=== PATIENT | female | born 1980 ===

== ENCOUNTER 2024-03-25 09:15 | Emergency (ER) | payer MEDICAID, OTHER ==
[~2024-03-25] VITALS: Ht 157.5 cm; Wt 55.8 kg
--- NOTE | 2024-03-25 09:29 | ED.PDOC ---
History of Present Illness HPI Comments flu symptoms for 3 days Comments cough, congestion, body aches for 3 days. no sob. 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 History Family History Family History: Reviewed,noncontributory to illness, No family hx of Cancer, No family hx of DM, No family hx of Heart herman, No family hx of HTN, No family hx ofKidney herman, No family hx of Liver herman, No family hx of Lung herman, No family hx of Stroke Social History Smoker: Quit Greater Than 1 Year Alcohol: Denies ETOH Use Drugs: Denies Drug Use Constitutional: reports: malaise; denies: chills, diaphoresis, fatigue, fever, sweats, weakness, others EENTM: reports: nasal discharge, nose congestion; denies: blurred vision, double vision, ear bleeding, ear discharge, ear drainage, ear pain, ear ringing, eye pain, eye redness, hearing loss, mouth pain, mouth swelling, nose bleeding, nose pain, photophobia, tearing, throat pain, throat swelling, voice changes, others Respiratory: reports: cough; denies: hemoptysis, orthopnea, SOB at rest, shortness of breath, SOB with excertion, stridor, wheezing, others Cardiovascular: denies: chest pain, dizzy spells, diaphoresis, Dyspnea on exertion, edema, irregular heart beat, left arm pain, lightheadedness, palpitations, PND, syncope, others Gastrointestinal: denies: abdomen distended, abdominal pain, blood streaked bowels, constipated, diarrhea, dysphagia, difficulty swallowing, hematemesis, melena, nausea, poor appetite, poor fluid intake, rectal bleeding, rectal pain, vomiting, others Genitourinary: denies: abnormal vagina bleeding, burning, dyspareunia, dysuria, flank pain, frequency, hematuria, incontinence, pain, , vagina discharge, urgency, others Neurological: denies: dizziness, fainting, headache, left sided numbness, left sided weakness, numbness, paresthesia, pre-existing deficit, right sided numbness, right sided weakness, seizure, speech problems, tingling, tremors, weakness, others Musculoskeletal: reports: muscle pain; denies: back pain, gout, joint pain, joint swelling, muscle stiffness, neck pain, others Integumetry: denies: bruises, change in color, change in hair/nails, dryness, laceration, lesions, lumps, rash, wounds, others Allergic/Immunocompromised: denies: Difficulty Healing, Frequent Infections, Hives, Itching, others Hematologic/Lymphatic: denies: anemia, blood clots, easy bleeding, easy bruising, swollen glands, others Endocrine: denies: excessive hunger, excessive sweating, excessive thirst, excessive urination, flushing, intolerance to cold, intolerance to heat, unexpl ained weight gain, unexplained weight loss, others Psychiatric: denies: anxiety, bipolar disorder, depression, hopeless, panic disorder, schizophrenia, sleepless, suicidal, others All Other Systems: Reviewed and Negative Physical Exam General Appearance: No Apparent Distress, Normal HEENT: Normal ENT Inspection, Pharynx Normal, TMs Normal, Other (nasal voice) Neck: Full Range of Motion, Non-Tender, Normal, Normal Inspection Respiratory: Chest Non-Tender, Lungs Clear, No Accessory Muscle Use, No Respiratory Distress, Normal Breath Sounds Cardiovascular: No Edema, No JVD, No Murmur, No Gallop, Normal Peripheral Pulses, Regular Rate/Rhythm Breast Exam: Deferred Gastrointestinal: No Organomegaly, Non Tender, No Pulsatile Mass, Normal Bowel Sounds, Soft Genitalia: Deferred Pelvic: Deferred Rectal: Deferred Extremities: No calf tenderness, Normal capillary refill, Normal inspection, Normal range of motion, Non-tender, No pedal edema Musculoskeletal : Apperance: Normal Neurologic: Alert, literacy specialist II-XII nml as Tested, No Motor Deficits, Normal Affect, Normal Mood, No Sensory Deficits Cerebellar Function: Normal Reflexes: Normal Skin: Dry, Normal Color, Warm Lymphatic: No Adenopathy Was a procedure done? Was a procedure done?: No Differential Dx Considerations may include: pneumonia, ami, chf, pe, ptx, copd exacerbation, acute respiratory failure X-Ray, Labs, Meds, VS Vital Signs Date Time Temp Pulse Resp B/P (MAP) Pulse Ox O2 Delivery O2 Flow Rate FiO2 03/25/24 10:32 114 18 96 Room Air* 0 21 03/25/24 10:31 114 20 95 Room Air 03/25/24 10:31 98.9 114 20 96/72 (80) 95 98.9 03/25/24 09:49 20 94 Room Air* 0 21 03/25/24 09:34 99.7 120 18 123/89 (100) 86 Lab Test 03/25/24 11:15 03/25/24 10:23 03/25/24 09:53 Range/Units Lactic Acid Level Pending Influenza Type A Antigen Negative Negative Influenza Type B Antigen Negative Negative SARS-CoV-2 Antigen (Rapid) Negative NEGATIVE White Blood Count 8.0 4.4-10.8 10^3/uL Red Blood Count 5.51 H 4.0-5.20 10^6/uL Hemoglobin 15.9 12.2-16.2 g/dL Hematocrit 47.8 H 36.0-46.0 % Mean Corpuscular Volume 86.9 80.0-100.0 fL Mean Corpuscular Hemoglobin 28.9 28.0-32.0 pg Mean Corpuscular Hemoglobin Concent 33.3 32.0-36.0 g/dL Red Cell Distribution Width 13.5 11.8-14.3 % Platelet Count 157 140-450 10^3/uL Mean Platelet Volume 9.7 6.9-10.8 fL Neutrophils (%) (Auto) 69.1 37.0-80.0 % Lymphocytes (%) (Auto) 17.9 10.0-50.0 % Monocytes (%) (Auto) 12.6 H 0.0-12.0 % Eosinophils (%) (Auto) 0.0 0.0-7.0 % Basophils (%) (Auto) 0.4 0.0-2.0 % Neutrophils # (Auto) 5.5 1.6-8.6 10 ^3/uL Lymphocytes # (Auto) 1.4 0.4-5.4 10 ^3/uL Monocytes # (Auto) 1.0 0-1.3 10 ^3/uL Eosinophils # (Auto) 0 0-0.8 10 ^3/uL Basophils # (Auto) 0 0-0.2 10 ^3/uL Nucleated Red Blood Cells 0.1 % Prothrombin Time 12.0 H 9.3-11.8 sec Prothrombin Time INR 1.15 0.9-1.15 Activated Partial Thromboplast Time 37.6 H 24.5-34.5 SEC Sodium Level 134 L 136-145 mmol/L Potassium Level 3.6 3.5-5.1 mmol/L Chloride Level 99 98-107 mmol/L Carbon Dioxide Level 27 20-31 mmol/L Anion Gap 8 5-15 Blood Urea Nitrogen 11 9-23 mg/dL Creatinine 1.36 H 0.550-1.02 mg/dL Glomerular Filtration Rate Calc 49 >90 mL/min BUN/Creatinine Ratio 8.1 L 10.0-20.0 Serum Glucose 112 H 74-106 mg/dL Calcium Level 9.1 8.7-10.4 mg/dL Current Medications Medications (Trade) Dose Ordered Sig/Radha Route Start Time Stop Time Status Last Admin Ipratropium [place] (Atrovent Medneb) 0.5 mg ONCE ONCE NEB 03/25/24 09:30 03/25/24 09:32 DC 03/25/24 09:39 Albuterol (Ventolin Medneb) 5 mg ONCE ONCE NEB 03/25/24 09:30 03/25/24 09:32 DC 03/25/24 09:39 Sodium Chloride 1,500 ml @ 1,500 mls/hr ONCE ONCE IV 03/25/24 10:45 03/25/24 11:44 03/25/24 11:20 Piperacillin Sod/ Tazobactam Sod 100 ml @ 100 mls/hr ONCE ONCE IV 03/25/24 11:15 03/25/24 12:14 03/25/24 11:20 Time of 1ST Reevaluation: 11:44 Reevaluation 1ST: Improved Patient Education/Counseling: Diagnosis, Treatment, Prognosis, Need For Follow Up Family Education/Counseling: No Family Present Additional Information pt presents with viral syndrome. she had been a smoker, quit 2 years ago. pt has findings concerning for PE, but CTA does not show this. she has evidence of pulmonary art htn on the cta, which may be related to copd from her smoking history. with her viral syndrome, she may also have viral myocarditis. she will need to be admitted for further evaluation and treatments. her hypotension responded to fluid bolus and her hypoxia responded to O2 Departure 1 Departure Time of Disposition: 11:45 Impression: Primary Impression: COPD exacerbation Additional Impressions: Acute respiratory failure Qualified Codes: J96.01 - Acute respiratory failure with hypoxia Pulmonary arterial hypertension Renal failure Qualified Codes: N19 - Unspecified kidney failure Viral syndrome Disposition: ADMITTED INPATIENT Admit to: [facility] Condition: Critical Discharged With: Self Critical Care Note Critical Care Time?: Yes (55 min-critical care time only) Critical care comment: due to concerns for deterioration of patient's condition, the care required my highest level of attention and readiness. i assessed the patient's condition, revieweed relavent documents, communicated with medical personnel, ordered the proper tests and treatments, reassed fro results and response to treatments, spoke to family and consultants and formulated a plan of care Stability Stability form required: VIAJY Peres MD Mar 25, 2024 09:29
[2024-03-25] MEDS: IPRATROPIUM BROM 0.5 MG/2.5ML INH SOL NEB ONE (09:39)
[2024-03-25] MEDS: ALBUTEROL SULF 2.5 MG/0.5ML(0.5%) NEB SOLN NEB ONE (09:39)
--- NOTE | 2024-03-25 09:39 | ECG ---
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
[2024-03-25 10:11] LABS: Basophils # (auto) 0 10 ^3/uL (0-0.2); Basophils % (auto) 0.4 % (0.0-2.0); Eosinophils # (auto) 0 10 ^3/uL (0-0.8); Hematocrit 47.8 % (36.0-46.0); Hemoglobin 15.9 g/dL (12.2-16.2); Lymphocytes # (auto) 1.4 10 ^3/uL (0.4-5.4); Lymphocytes % (auto) 17.9 % (10.0-50.0); Mean Corpuscular Hemoglobin 28.9 pg (28.0-32.0); Mean Corpuscular Hgb Conc. 33.3 g/dL (32.0-36.0); Mean Corpuscular Volume 86.9 fL (80.0-100.0); Monocytes % (auto) 12.6 % (0.0-12.0); Neutrophils # (auto) 5.5 10 ^3/uL (1.6-8.6); Neutrophils % (auto) 69.1 % (37.0-80.0); Nucleated Red Blood Cells % 0.1 %; Platelet Count (auto) 157 10^3/uL (140-450); Red Blood Cells 5.51 10^6/uL (4.0-5.20); Red Cell Distribution Width 13.5 % (11.8-14.3)
[2024-03-25 10:23] LABS: Chloride 99 mmol/L (98-107); Potassium 3.6 mmol/L (3.5-5.1)
[2024-03-25 10:24] LABS: Anion Gap 8 (5-15); Carbon Dioxide 27 mmol/L (20-31); Sodium 134 mmol/L (136-145)
[2024-03-25 10:25] LABS: Calcium 9.1 mg/dL (8.7-10.4)
[2024-03-25 10:29] LABS: BUN/Creatinine Ratio 8.1 (10.0-20.0); Blood Urea Nitrogen 11 mg/dL (9-23)
[2024-03-25 10:30] LABS: Glucose 112 mg/dL (74-106)
[2024-03-25 10:32] VITALS: PULSE 114; RESP 18; O2SAT 96
[2024-03-25] MEDS ORDERED: SODIUM CHLORIDE 0.9% 1,000 ML IV ONE (10:45)
[2024-03-25 10:58] LABS: COVID19 ANTIGEN SOFIA FIA NEGATIVE (NEGATIVE); Rapid Influenza A Negative (Negative); Rapid Influenza B Negative (Negative)
--- NOTE | 2024-03-25 11:15 | DVH ---
CHEST RADIOGRAPH Indication: cough Technique: Single frontal view of the chest was obtained COMPARISON: None FINDINGS: Lines and Tubes: None Lungs: Clear Pleura: No effusion. No pneumothorax. Cardiomediastinal contours: Unremarkable Bones: Unremarkable IMPRESSION: 1. No acute disease.
[2024-03-25] MEDS: SODIUM CHLORIDE 0.9% 1,500 ML IV ONE (11:20)
[2024-03-25] MEDS: PIPERACILLIN-TAZO 4.5GM 100 ML IV ONE (11:20)
[2024-03-25] MEDS: IOHEXOL 350 MG/ML 100ML IJ ONE (11:25)
--- NOTE | 2024-03-25 11:28 | DVH ---
CTA Chest with intravenous contrast INDICATION: Shortness of breath COMPARISON: None TECHNIQUE: Multidetector spiral CTA of the chest was performed of the chest with intravenous contrast . PULMONARY ANGIOGRAPHY PROTOCOL was utilized using a bolus-tracking technique centered on the main p ulmonary artery. Axial, coronal and sagittal multiplanar and MIP reformats were performed. Radiation Dose : 1. Chest: CTDI volume is 7.99 mGy. Dose-length product is 317.03 mGy*cm The dose indicators for CT are the volume Computed Tomography (CT) Dose Index (CTDIvol) and the Dose Length Product (DLP), and are measured in units of mGy and mGy-cm, respectively. These indicators are not patient dose, but values generated from the CT scanner acquisition factors. The report includes radiation exposure data for exposures received during this examination. Findings: Pulmonary artery: No pulmonary embolism Lower neck: Normal thyroid. Lungs: No focal consolidation, pleural effusion or pneumothorax. Heart/Vascular Structures: Normal heart size. No pericardial effusion. Dilated main pulmonary artery measuring up to 3.3 cm, possibly related to chronic pulmonary arterial hypertension. Lymph Nodes: No adenopathy Pleura: No pleural effusion or significant pneumothorax. Musculoskeletal: No acute osseous abnormality. Soft tissues: Normal. Upper abdomen: Limited portions of the upper abdomen are unremarkable. IMPRESSION: 1. No pulmonary embolism. 2. No acute thoracic finding. 3. Dilated main pulmonary artery measuring up to 3.3 cm, possibly related to chronic pulmonary arteri al hypertension.
[2024-03-25 11:32] LABS: INR 1.15 (0.9-1.15); Partial Thromboplastin Time 37.6 SEC (24.5-34.5)
[2024-03-25 12:34] LABS: Lactic Acid w/Reflex 5.4 mmol/L (0.4-2.0)
[2024-03-25 13:22] LABS: Base Excess -1.2 mmol/L (-2.0-3.0)
[2024-03-25] MEDS ORDERED: PIPERACILLIN-TAZO 4.5GM 100 ML IV SCH (16:00)
[2024-03-25] MEDS: PIPERACILLIN-TAZOB 3.375GM 100 ML IV SCH (17:07)
[2024-03-25 17:19] VITALS: BP 115/63; PULSE 74; RESP 20; TEMP 98.3; O2SAT 97
== END 2024-03-25 21:30 | disposition left against medical advice (07) ==
LOC: ER 09:15
DX: J96.90 Respiratory failure, unspecified, unspecified whether with hypoxia or hypercapnia (principal); J44.1 Chronic obstructive pulmonary disease with (acute) exacerbation; N19 Unspecified kidney failure; I27.21 Secondary pulmonary arterial hypertension; B34.9 Viral infection, unspecified; Z20.822 Contact with and (suspected) exposure to COVID-19
CPT/HCPCS: 36415; 36600; 71045; 71275; 80048; 82805; 83605; 85025; 85610; 85730; 86850; 86900; 86901; 87040; 87426; 87804; 93005; 94640; 96365; 96366; 99291; J2543; Q9967